=== PATIENT | female | born 1950 | race Caucasian/White ===

== ENCOUNTER 2018-03-16 11:47 | Outpatient (CLI) | payer MEDICARE ==
[2018-03-16 12:35] LABS: BASOPHILS % 0.4 (0.0-1.5); EOSINOPHILS % 1.4 % (0.0-6.8); MONOCYTES % 4.5 % (0.0-11.0); NEUTROPHILS # 3.6 # k/uL (1.4-7.7)
[2018-03-16 12:39] LABS: eGFR (Non-African) > 60
== END 2018-03-16 11:50 ==
LOC: LAB 11:47
PROVIDERS: ATTEND Family Medicine
DX: I10 Essential (primary) hypertension (principal)
CPT/HCPCS: 36415; 80053; 85025